=== PATIENT | male | born 1960 | race Hispanic/Latino ===

== ENCOUNTER 2017-12-04 03:43 | Emergency (ER) | payer SELFPAY ==
--- NOTE | 2017-12-04 03:52 | DI.CT.S_ITS ---
PROCEDURE: CT CERVICAL SPINE WO CON INDICATIONS: fall, etoh TECHNIQUE: Noncontrast 3 mm thick sections acquired from the skull base to the T4 level. Sagittal and coronal reformats were then constructed. For radiation dose reduction, the following was used: automated exposure control, adjustment of mA and/or kV according to patient size. COMPARISON: None. FINDINGS: Image quality: Excellent. Bones: No fractures or dislocations. Visualized superior ribs are intact. Soft tissues: Prevertebral soft tissues are normal in thickness. No paravertebral hematomas. No apical pneumothoraces. IMPRESSION: No fracture. Concordant with preliminary interpretation. Dictated by: Barrett Quach M.D. on 12/04/2017 at 10:08 Approved by: Barrett Quach M.D. on 12/04/2017 at 10:11
--- NOTE | 2017-12-04 03:52 | DI.CT.S_ITS ---
PROCEDURE: CT HEAD/BRAIN WO CON INDICATIONS: fall, etoh TECHNIQUE: Noncontrast 4.5 mm thick angled axial sections acquired from the foramen magnum to the vertex, with coronal and sagittal reformats. For radiation dose reduction, the following was used: automated exposure control, adjustment of mA and/or kV according to patient size. COMPARISON: None. FINDINGS: Image quality: Excellent. CSF spaces: Basal cisterns are patent. No extra-axial fluid collections. Ventricles are normal in size and shape. Brain: No midline shift. No intracranial masses or hemorrhage. Esquivel-white matter interface is normal. Skull and face: Calvarium and visualized facial bones are intact, without suspicious lesions. Sinuses: Moderate mucosal thickening within the bilateral ethmoid sinuses. Right maxillary sinus mucosal thickening is present which is incompletely visualized. IMPRESSION: No acute intracranial abnormality. Sinus disease. Concordant with preliminary interpretation. Dictated by: Barrett Quach M.D. on 12/04/2017 at 10:07 Approved by: Barrett Quach M.D. on 12/04/2017 at 10:08
[2017-12-04 03:58] VITALS: BP 108/72; PULSE 87; RESP 16; TEMP 37.1; O2SAT 98; BMI 34.2
--- NOTE | 2017-12-04 04:57 | ED.ALCOHOL ---
HPI - Alcohol General Chief Complaint: Toxicology Problem Stated Complaint: CAROLINA BIRCH Time Seen by Provider: 12/04/17 03:52 Source: patient and EMS Mode of arrival: EMS Limitations: no limitations History of Present Illness HPI narrative: Patient is a 57-year-old male with ground level fall after drinking alcohol. He apparently was coming out of the [facility] when he fell to the ground. No loss of conscious. He does have some urinary incontinence. No vomiting. He is awake and alert and able to follow commands. He has no complaints. He does obvious contusion on his forehead. MD complaint: alcohol intoxication Review of Systems Review of Systems All systems reviewed & are unremarkable except as noted in HPI and below Constitutional Denies chills, Denies fever(s), Denies lethargy and Denies weakness Eyes Denies change in vision, Denies eye discharge, Denies irritation and Denies loss of vision ENT Ears, Nose, Mouth, and Throat: Denies change in voice, Denies neck pain and Denies sore throat Cardiovascular Denies chest pain, Denies irregular heart rhythm, Denies lightheadedness, Denies palpitations, Denies dyspnea, Denies dyspnea on exertion and Denies orthopnea Respiratory Denies cough, Denies dyspnea, Denies dyspnea on exertion and Denies wheezing Gastrointestinal Gastrointestinal: Denies abdominal pain, Denies change in bowel habits, Denies diarrhea, Denies nausea and Denies vomiting Genitourinary Reports as per HPI Musculoskeletal Denies neck pain Integumentary/Breasts Denies pruritus, Denies erythema, Denies rash and Denies wounds Neurologic Reports as per HPI, Denies loss of vision and Denies weakness Endocrine Denies palpitations Allergic/Immunologic Denies wheezing [facility] Medical History Healthy adult (Acute) Social History alcohol intake: current Exam Initial Vital Signs Initial Vital Signs: Vital Signs Temperature 98.7 F 12/04/17 03:58 Pulse Rate 87 12/04/17 03:58 Respiratory Rate 16 12/04/17 03:58 Blood Pressure 108/72 12/04/17 03:58 Pulse Oximetry 98 12/04/17 03:58 GENERAL: [Well-appearing, well-nourished] and in [no acute] distress. HEENT: Head contusion across the forehead no depressions no crepitations NECK: No vertebral step-offs no pain CARDIOVASCULAR: Regular rate and rhythm without murmurs, rubs or gallops. RESPIRATORY: Breath sounds equal bilaterally, no wheezes rales or rhonchi. ABDOMEN: Soft, nontender. Normoactive bowel sounds all 4 quadrants. No guarding or rebound. : Urinary incontinence EXTREMITIES: Normal range of motion, no clubbing or edema. Neurovascularly intact NEUROLOGICAL: Alert and oriented x4.Normal gait and speech. Cranial nerves II through XII grossly intact. Hims Manager strength equal bilaterally SKIN: Warm, dry, no laceration, no petechiae, no rashes or lesions. 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 Scalp contusion. Chronic sinusitis not fully included. CT C-spine: Radiologist's impression: maintenance mechanic 2nd shift report: Multilevel degenerative changes no acute abnormality MDM Narrative Medical decision making narrative: Patient was ambulatory in the ED. He actually did trip and fall in the DI hallway just prior to his head and neck CT. Both of those are negative. He is awake and alert. His son is here now willing and able to take home. Discharge Plan Departure Patient Disposition: Home, Self-Care Clinical Impression: Alcoholic intoxication Discharge Date/Time: 12/04/17 05:10 Interventions: ED Discharge Assessment Last Done: 12/04/17 05:11 Instructions: DI for Alcohol Abuse Activity Restrictions/Additional Instructions: *You have been diagnosed with alcohol intoxication *What to do: CT scan of head and neck are negative *Continue to take medications as directed *Follow up with your primary care provider in 2-3 days *Return to ER if you should have worsening headache, persistent vomiting or any new, worsening or concerning symptoms
--- NOTE | 2017-12-04 05:01 | ED_ITS ---
HPI - Alcohol General Chief Complaint: Toxicology Problem Stated Complaint: CAROL[place] BIRCH Time Seen by Provider: 12/04/17 03:52 Source: patient and EMS Mode of arrival: EMS Limitations: no limitations History of Present Illness HPI narrative: Patient is a 57-year-old male with ground level fall after drinking alcohol. He apparently was coming out of the [facility] when he fell to the ground. No loss of conscious. He does have some urinary incontinence. No vomiting. He is awake and alert and able to follow commands. He has no complaints. He does obvious contusion on his forehead. MD complaint: alcohol intoxication Review of Systems Review of Systems All systems reviewed & are unremarkable except as noted in HPI and below Constitutional Denies chills, Denies fever(s), Denies lethargy and Denies weakness Eyes Denies change in vision, Denies eye discharge, Denies irritation and Denies loss of vision ENT Ears, Nose, Mouth, and Throat: Denies change in voice, Denies neck pain and Denies sore throat Cardiovascular Denies chest pain, Denies irregular heart rhythm, Denies lightheadedness, Denies palpitations, Denies dyspnea, Denies dyspnea on exertion and Denies orthopnea Respiratory Denies cough, Denies dyspnea, Denies dyspnea on exertion and Denies wheezing Gastrointestinal Gastrointestinal: Denies abdominal pain, Denies change in bowel habits, Denies diarrhea, Denies nausea and Denies vomiting Genitourinary Reports as per HPI Musculoskeletal Denies neck pain Integumentary/Breasts Denies pruritus, Denies erythema, Denies rash and Denies wounds Neurologic Reports as per HPI, Denies loss of vision and Denies weakness Endocrine Denies palpitations Allergic/Immunologic Denies wheezing [facility] Medical History Healthy adult (Acute) Social History alcohol intake: current Exam Initial Vital Signs Initial Vital Signs: Vital Signs Temperature 98.7 F 12/04/17 03:58 Pulse Rate 87 12/04/17 03:58 Respiratory Rate 16 12/04/17 03:58 Blood Pressure 108/72 12/04/17 03:58 Pulse Oximetry 98 12/04/17 03:58 GENERAL: [Well-appearing, well-nourished] and in [no acute] distress. HEENT: Head contusion across the forehead no depressions no crepitations NECK: No vertebral step-offs no pain CARDIOVASCULAR: Regular rate and rhythm without murmurs, rubs or gallops. RESPIRATORY: Breath sounds equal bilaterally, no wheezes rales or rhonchi. ABDOMEN: Soft, nontender. Normoactive bowel sounds all 4 quadrants. No guarding or rebound. : Urinary incontinence EXTREMITIES: Normal range of motion, no clubbing or edema. Neurovascularly intact NEUROLOGICAL: Alert and oriented x4.Normal gait and speech. Cranial nerves II through XII grossly intact. Customer Solutions Coordinator strength equal bilaterally SKIN: Warm, dry, no laceration, no petechiae, no rashes or lesions. Course Orders Ordered: ED Orders 12/04/17 03:52 CT cervical spine wo con Stat CT head/brain wo con Stat Vital Signs - 8 hr 12/04/17 03:58 Temperature 98.7 F Pulse Rate 87 Respiratory Rate 16 Blood Pressure 108/72 Pulse Oximetry 98 MDM - Alcohol Imaging Data CT scan - head: Radiologist's impression: call or contact centre operator report: No acute intracranial abnormality. Scalp contusion. Chronic sinusitis not fully included. CT C-spine: Radiologist's impression: call or contact centre operator report: Multilevel degenerative changes no acute abnormality MDM Narrative Medical decision making narrative: Patient was ambulatory in the ED. He actually did trip and fall in the DI hallway just prior to his head and neck CT. Both of those are negative. He is awake and alert. His son is here now willing and able to take home. Discharge Plan Departure Patient Disposition: Home, Self-Care Clinical Impression: Alcoholic intoxication Discharge Date/Time: 12/04/17 05:10 Interventions: ED Discharge Assessment Last Done: 12/04/17 05:11 Instructions: DI for Alcohol Abuse Activity Restrictions/Additional Instructions: *You have been diagnosed with alcohol intoxication *What to do: CT scan of head and neck are negative *Continue to take medications as directed *Follow up with your primary care provider in 2-3 days *Return to ER if you should have worsening headache, persistent vomiting or any new, worsening or concerning symptoms
[2017-12-04 05:11] VITALS: BP 105/70; PULSE 82; RESP 16; TEMP 36.8; O2SAT 97
== END 2017-12-04 05:10 | disposition home or self-care (01) ==
PROVIDERS: Emergency Provider Emergency Medicine
DX: F10.929 Alcohol use, unspecified with intoxication, unspecified (principal); W18.30XA Fall on same level, unspecified, initial encounter
CPT/HCPCS: 70450; 72125; 99282; 99283